=== PATIENT | male | born 1980 | race Caucasian/White ===

== ENCOUNTER 2024-11-04 11:35 | Emergency (ER) | payer MEDICAID, SELFPAY ==
[2024-11-04] VITALS (8 sets, daily range): BP systolic 101–125; BP diastolic 51–80; PULSE 57–81; RESP 16–18; TEMP 36.5–36.9; O2SAT 95–99; BMI 31.3
--- NOTE | ~2024-11-04 | CT_ITS ---
EXAMINATION: CTA NECK WITH CONTRAST (STROKE) CTA BRAIN WITH CONTRAST (STROKE) CLINICAL INFORMATION: Severe headache. Diplopia. COMPARISON: None available. TECHNIQUE: CTA of the head and neck was performed in the axial plane from the mediastinum to the skull vertex using 70 mL Omnipaque 350 intravenous contrast. Additional reformatted multiplanar images including maximum intensity projection MIP images are generated on the CT workstation. This CT examination was performed using dose optimization techniques as appropriate, variously including the following: *Automated exposure control *Adjustment of mA and/or kV according to patient size (this includes techniques or standardized protocols for targeted exams where dose is matched to indication/reason for exam; i.e. extremities or head) *Use of iterative reconstruction technique DLP: 1595 mGy centimeter. FINDINGS: The degree of stenosis determined by criteria similar to NASCET. Brain: No acute intracranial hemorrhage mass effect midline shift, hydrocephalus or herniation. Spears-white matter differentiation is normal. Posterior cranial fossa contents demonstrated no acute hemorrhage or mass effect. Craniocervical junction demonstrates normal position of the cerebellar tonsils. No gross masses in the sellar suprasellar region. Mucosal thickening and secretions in the right maxillary sinus and right abnormal air cells. Tympanic cavities and mastoid cells are aerated. Probable old traumatic deformities in the nasal bones. Chest CTA: No aneurysm or dissection, thoracic aortic arch. Neck CTA: Right CCA: Normal patency. No focal stenosis. No intimal flap. Right ICA: Normal patency. No focal stenosis. No intimal flap. Tortuosity. Left CCA: Normal patency. No focal stenosis. No intimal flap. Tortuosity. Left ICA: Normal patency. No focal stenosis. No intimal flap. Tortuosity. V1/V2 segments: Normal patency. No focal stenosis. No intimal flap. Tortuosity. Codominant vertebral arteries. Brain CTA: Anterior cerebral circulation: ICAs: Normal patency. No focal stenosis. No abrupt cut off. MCA's: Normal patency. No focal stenosis. No abrupt cut off. Bifurcation/trifurcation demonstrated no vascular irregularity. ACAs: Normal patency. No focal stenosis. No abrupt cut off. Anterior communicating artery is patent without vascular irregularity. Ophthalmic arteries are patent without vascular irregularity. I do not see the posterior communicating arteries. Posterior cerebral circulation: V3/V4 segments: Normal patency. No intimal flap. Posterior inferior cerebellar arteries are patent without vascular irregularity. Superior cerebellar arteries are patent without vascular irregularity. Basilar artery: Normal patency. No intimal flap. Basilar artery tip is normal. patternmaker bench: Normal patency. No focal stenosis. No abrupt cut off. Ancillary findings: Main cerebral venous sinuses are patent. Pulmonary mosaic pattern. Multilevel cervical spondylosis. Incomplete fusion posterior arch of C1. S-shaped curvature of the cervical thoracic spine which could be positional.. CT/CT angio head neck IMPRESSION: No main cerebral artery occlusion or embolus. No cerebral aneurysm. No high degree stenosis or dissection, extracranial arteries. No acute brain abnormality by CT. No thrombosis, main cerebral venous sinuses. 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 Multilevel cervical spondylosis. Probable small airway disease versus small pulmonary artery disease.. Electronically signed by: Keith Bergman MD 11/04/2024 03:03 PM EDT
--- NOTE | ~2024-11-04 | MR_ITS ---
CLINICAL HISTORY: ? CVA double vision MR Brain without gadolinium Comparison: None provided Findings: No restricted diffusion. No intra-axial mass or hemorrhage. No midline shift. No hydrocephalus. Vascular flow voids are intact. The orbits are normal. Mucosal thickening in the maxillary sinuses, ethmoid air cells, and left frontal sinus. No focal bone lesion. IMPRESSION: 1. No acute intracranial findings. This document has been electronically signed by: Raghavendra Jamil MD on 11/04/2024 19:05:00
--- NOTE | 2024-11-04 11:40 | ED_ITS ---
HPI - General Adult General Chief complaint: Headache Stated complaint: double vision 1week, light headed, headache Time Seen by Provider: 11/04/24 12:18 Source: patient Mode of arrival: ambulatory Limitations: no limitations History of Present Illness HPI narrative: this is a 43 years old presented to the emergency department with a chief complaint of headache and double vision for about 10 days. He has a history of polysubstance abuse the he is in a program right now he he is on methadone. Onset (ago): day(s) (10) Location: head Radiation: non-radiation Severity: moderate Pain Consistency: constant Relieving factors: none Exacerbating factors: none Associated symptoms: denies other symptoms Related Data Allergies Allergy/AdvReac Type Severity Reaction Status Date / Time fish derived (fish) Allergy Severe Anaphylaxis Verified 11/04/24 11:41 lactase (From Dairy Aid) Allergy Severe Anaphylaxis Verified 11/04/24 11:41 Sulfa (Sulfonamide Allergy Severe Anaphylaxis Verified 11/04/24 11:41 Antibiotics) Review of Systems 2 Constitutional: Constitutional: Reports no additional constitutional complaints Cardiovascular: Cardiovascular: Reports no additional cardiovascular complaints Neurologic: Reports system reviewed and no additional complaints, except as documented and Reports as per [facility] Past Medical History Attestation statement: The following information was validated with the patient. [facility] Narrative: Substance abuse opioids, pulmonary emboli Social History Social History Smoked in Last 30 Days: No Use of substances other than those prescribed or required for medical reasons: No Advance Directives: No Advance Directives Information Provided: Yes Do you have a plan to hurt others: No Plan Physical Exam ED Vital Signs: Vital Signs - 24 hr 11/04/24 11:40 11/04/24 12:50 11/04/24 14:06 Temperature 98.3 F 97.7 F Pulse Rate 81 65 57 Respiratory Rate 18 18 Blood Pressure 125/80 101/51 L 111/67 Pulse Oximetry 96 95 Oxygen Delivery Method Room Air Room Air 11/04/24 14:07 11/04/24 14:07 11/04/24 16:20 Temperature 98.4 F Pulse Rate 61 68 59 Respiratory Rate 16 Blood Pressure 103/67 102/71 112/70 Pulse Oximetry 98 Oxygen Delivery Method Room Air 11/04/24 18:00 Temperature 97.8 F Pulse Rate 65 Respiratory Rate 16 Blood Pressure 124/75 Pulse Oximetry 99 Oxygen Delivery Method Room Air BMI result Body Mass Index 31.3 no acute distress Const General: cooperative Nutritional Appearance: average body habitus Orientation/consciousness: oriented to person and patient oriented x3 Limitations: no limitations HENMT Ears: hearing grossly normal bilaterally General nose exam: Normal external nose present Face and sinus: Yes normal facial exam Mouth: Normal oral and palatal mucosa present Throat: Yes posterior oropharynx normal Eyes Other: full extraocular movement pupils equal and jacques General: appearance normal, both eyes and all related structures Visual Blackmon: normal visual blackmon by confrontation Eyelids: Yes eyelids normal Conjunctivae: conjunctivae normal Sclerae: sclerae normal Chest Chest palpation & inspection: normal inspection of the chest Resp Effort & Inspection: normal respiratory effort Auscultation: clear to auscultation bilaterally Cardio Jugular venous distension: no JVD Rate: regular rate GI Inspection: Yes normal to inspection Palpation (GI): Soft to palpation, not firm, nontender and no guarding General: Yes no CVA tenderness Back/Spine/Pelvis Back: no CVA tenderness Skin General skin exam: no rashes or lesions noted and elasticity normal Lesions: no lesions Rashes: no rashes Trauma: no lacerations or abrasions Neuro General: oriented to person and patient oriented x3 Cranial nerves: Yes CN's II-XII intact bilaterally Cognition (Neuro): normal cognition Motor exam (neuro): 5/5 motor strength present throughout Course Course Course Narrative: RME, this is a rapid medical exam performed by Ernesto Barron please refer to primary provider for complete H&P- 43 year old male presents for evaluation of blurry vision. Patient reports for the last week he has had blurry vision and a headache. History of substance abuse, denies fevers or chills. Plan for labs, CT scan of the brain Reevaluation(s) Reevaluation #1: Spoke with Ophatalmologist Dr Pérez will see pt Tomorrow at 7:40 AM Reevaluation #2: MRI normal no CVA at this point the patient can be discharged home Time: 19:20 Medications Administered Discontinued Medications Generic Name Dose Route Start Last Admin Trade Name Freq PRN Reason Stop Dose Admin Sodium Chloride 1,000 mls @ 999 mls/hr 11/04/24 14:30 11/04/24 16:07 Ns IVCONT 11/04/24 15:30 Infused .Q1H1M MONICA Infusion Iohexol 100 ml 11/04/24 14:22 11/04/24 14:22 Iohexol 350 Mg/Ml 100 Ml Infus..Btl IV 11/04/24 14:23 70 ml ONCE ONE Administration Ketorolac Tromethamine 15 mg 11/04/24 14:15 11/04/24 14:42 Ketorolac Tromethamine 15 Mg/Ml Vial IVPUSH 11/04/24 14:16 15 mg ONCE ONE Administration Lidocaine HCl 5 ml 11/04/24 12:29 11/04/24 12:49 Lidocaine Hcl 1 % Mpf 5 Ml Vial SUBCUT 11/04/24 12:30 5 ml ONCE ONE Administration Procedures EJ/Peripheral Line Arm L: Time Out Performed: Yes Skin Cleansed in Sterile Fashion: Yes Size (gauge): 20 IV Secured and Dressing Applied: Yes Patient Tolerated Procedure: well Additional Comments: this is a difficult IV access because the history of drug use in the past, under ultrasound-guided linear probe I cannulated the left basilic vein with a 20 gauge catheter long blood was obtain good flash line was secured Medical Decision Making Medical Decision Making MDM Narrative: patient is headache and diplopia times 10 days reasonable to get labs and imaging Differential Diagnosis Differential Diagnoses: The differential diagnosis associated with the presentation includes CVA/ brain aneurysm / migraines Admission/Observation Consideration of admission/observation: Escalation of care including admission/observation considered Consult Healthcare Provider Management of the patient was discussed with: Principal Statistical Scientist Dr Pérez Lab Data MDM Lab Attestation statement: I reviewed the patient's lab results. 11/04/24 12:36 11/04/24 12:55 Labs: Lab Results 11/04/24 11/04/24 11/04/24 Range/Units 12:36 12:55 14:18 WBC 5.9 (4.8-10.8) X10*3/uL RBC 4.81 (4.60-5.80) X10*6/uL Hgb 14.4 (14.0-18.0) g/dl Hct 41.3 L (42.0-52.0) % MCV 85.9 (80.0-98.0) fL MCH 29.9 (27.0-33.0) pg MCHC 34.9 (31.0-36.0) g/dl RDW 12.9 (11.0-16.0) % Plt Count TNP MPV TNP Immature Gran % (Auto) 0.2 (0.0-0.4) % Neut % (Auto) 53.7 (45-73) % Lymph % (Auto) 35.3 (20-40) % [place] % (Auto) 6.6 (2-11) % Eos % (Auto) 3.4 (0-4) % Baso % (Auto) 0.8 (0-2) % Lymph # (Auto) 2.1 (1.2-4.9) X10*3/uL [place] # (Auto) 0.4 (0.1-1.2) X10*3/uL Eos # (Auto) 0.2 (0.0-0.4) X10*3/uL Baso # (Auto) 0.1 (0.0-0.2) X10*3/uL Abs Immat Gran (auto) 0.01 (0.00-0.03) X10*3/uL Absolute Neuts (auto) 3.2 (2.0-8.3) x10*3/uL Absolute Nucleated RBC 0.000 (0.0-0.012) X10*3/uL Nucleated RBC % (auto) 0.0 (0.0-0.2) /100WBC Smear Tech's Comments VERIFIED Sodium 142 (135-145) mmol/L Potassium 3.4 (3.3-5.1) mmol/L Chloride 112 H (96-108) mmol/L Carbon Dioxide 23 (22-29) mmol/L Anion Gap 10 L (12-20) BUN 17 H (9-16) mg/dL Creatinine 0.81 (0.5-1.4) mg/dL Estim Creat Clear Calc 133.0 Estimated GFR > 60 Random Glucose 83 (60-115) mg/dL Calcium 7.4 L (8.4-10.2) mg/dL Magnesium 1.7 (1.6-2.6) mg/dL Total Bilirubin 0.4 (0.0-1.0) mg/dL AST 24 (5-37) U/L ALT 16 (0-40) U/L Alkaline Phosphatase 44 (39-117) U/L Total Protein 5.9 L (6.5-8.0) g/dL Albumin 3.8 (3.5-5.0) g/dL Urine Color Yellow Urine Appearance Clear Urine pH 5.5 (5.0-9.0) Ur Specific [place] 1.010 (1.005-1.025) Urine Protein Negative (Neg-Trace) mg/dL Urine Glucose (UA) Negative (Negative) mg/dL Urine Ketones Negative (Negative) mg/dL Urine Blood Negative (Negative) Urine Nitrite Negative (Negative) Ur Leukocyte Esterase Negative (Negative) Urine RBC 0-2 (0-2) /HPF Urine WBC 0-5 (0-5) /HPF Ur Squamous Epith Cells 0-2 (0-2) /HPF Urine Bacteria None Seen (None Seen) Hyaline Casts 0-2 (0-2) /LPF Urine Opiates Screen Not Detected (Not Detect) Ur Buprenorphine Scrn Not Detected (Not Detect) ng/mL Ur Oxycodone Screen Not Detected (Not Detect) ng/mL Urine Methadone Screen Positive H (Not Detect) ng/mL Urine Fentanyl Screen Not Detected (Not Detect) Ur Barbiturates Screen Not Detected (Not Detect) Ur Phencyclidine Scrn Not Detected (Not Detect) Ur Amphetamines Screen Not Detected (Not Detect) U Benzodiazepines Scrn Not Detected (Not Detect) Urine Cocaine Screen Not Detected (Not Detect) U Marijuana (THC) Screen Not Detected (Not Detect) Radiology Impression Discussion of test interpretation with radiology: I have reviewed the radiologist's reading. Radiologist Impression: No restricted diffusion. No intra-axial mass or hemorrhage. No midline shift. No hydrocephalus. Vascular flow voids are intact. The orbits are normal. Mucosal thickening in the maxillary sinuses, ethmoid air cells, and left frontal sinus. No focal bone lesion. IMPRESSION: 1. No acute intracranial findings. This document has been electronically signed by: Raghavendra Jamil MD on 11/04/2024 19:05:00 Dictated By: Raghavendra Jamil MD Discharge Plan Discharge Clinical Impression: Diplopia Headache Qualifiers: Headache type: unspecified Headache chronicity pattern: unspecified pattern I ntractability: not intractable Qualified Code(s): R51.9 - Headache, unspecified Patient Disposition: Home, Self-Care Instructions: Diplopia (ED) Additional Instructions: we want you to see an eye doctor (print press operator ) we spoke with Dr. Hedrick we will give you the number call and make an appointment he was willing to see a [phone] tomorrow. We can tell you 100 % that you brain is okay, no stroke no brain aneurysm. Referrals: Breezy Hedrick [Physician, Ophthalmology] - 11/05/24 Print Language: Icelandic
--- NOTE | 2024-11-04 12:36 | PC.NURSE ---
43 M presents to ED with headache in central forehead and double vision x 2 weeks. Pt is A+Ox4, anxious but cooperative. RR even and unlabored, denies SOB or chest pain. No other complaints. Pt sts hx substance use but denies recent use.
[2024-11-04] MEDS: Lidocaine HCl 1 % MPF 5 ML VIAL SUBCUT (12:49)
[2024-11-04 12:51] LABS: Hematocrit 41.3 % (42.0-52.0); Hemoglobin 14.4 g/dl (14.0-18.0); Imm Gran Abs Auto 0.01 X10*3/uL (0.00-0.03); Imm Gran Pct Auto 0.2 % (0.0-0.4); Lymphocytes Absolute Auto 2.1 X10*3/uL (1.2-4.9); MANUAL DIFF FLAG SCAN; Mean Corpuscular HGB Conc 34.9 g/dl (31.0-36.0); Mean Corpuscular Hemoglobin 29.9 pg (27.0-33.0); Mean Corpuscular Volume 85.9 fL (80.0-98.0); NRBC Abs Auto 0.000 X10*3/uL (0.0-0.012); NRBC Pct Auto 0.0 /100WBC (0.0-0.2); PLT CLUMP 1; Red Blood Count 4.81 X10*6/uL (4.60-5.80); SCAN SMEAR FLAG 1
[2024-11-04 13:13] LABS: Alanine Aminotransferase 16 U/L (0-40); Albumin Level 3.8 g/dL (3.5-5.0); Alkaline Phosphatase 44 U/L (39-117); Anion Gap 10 (12-20); Aspartate Amino Transferase 24 U/L (5-37); Blood Urea Nitrogen 17 mg/dL (9-16); Calcium 7.4 mg/dL (8.4-10.2); Carbon Dioxide 23 mmol/L (22-29); Chloride 112 mmol/L (96-108); Creatinine Clr Calc Pharmacy 133.0; Estimated Glomerular Filt Rate > 60; Magnesium 1.7 mg/dL (1.6-2.6); Potassium 3.4 mmol/L (3.3-5.1); Sodium 142 mmol/L (135-145); Total Protein 5.9 g/dL (6.5-8.0)
[2024-11-04 13:25] LABS: White Blood Count 5.9 X10*3/uL (4.8-10.8)
[2024-11-04] MEDS: iohexoL 350 MG/ML 100 ML INFUS..BTL IV (14:22)
[2024-11-04 14:25] LABS: Appearance Urine Clear; Glucose Urine UA Negative (Negative); PH 5.5 (5.0-9.0); Specific Gravity - Urine 1.010 (1.005-1.025)
[2024-11-04 14:56] LABS: Cannabinoid Screen Urine Not Detected (Not Detect)
--- NOTE | 2024-11-04 15:45 | PC.NURSE ---
MRI form faxed and placed in chart
--- NOTE | 2024-11-04 16:06 | PC.NURSE ---
Recieved a phone call from [facility], requesting discharge paperwork to be faxed to them at [phone]. Pt gave ok to fax over paperwork. [facility] staff also stated they can come pick him up when he is discharge, phone number is [phone].
--- NOTE | 2024-11-04 21:31 | PC.NURSE ---
this expert medical writer assumed care of pt at 1900.
--- NOTE | 2024-11-04 22:41 | PC.NURSE ---
this teletypewriter installer attempted to call [facility] program multiple time w/ no success, attempted made to get care team involved, pt given portable phone and able to get hold of [facility] program staff Olga, staff member able to contact other [facility] staff in order to come and pickling grader pt
== END 2024-11-04 21:55 | disposition home or self-care (01) ==
PROVIDERS: Physician Assistant; Emergency Provider Emergency Medicine
DX: H53.2 Diplopia (principal); R51.9 Headache, unspecified; F11.20 Opioid dependence, uncomplicated
CPT/HCPCS: 36415; 36573; 70496; 70498; 70551; 80053; 80307; 81001; 83735; 85025; 96361; 96374; 99285; J1885; J2003; Q9967

== ENCOUNTER → 2024-11-04 12:18 | Outpatient (BNV) | payer MEDICAID, SELFPAY | PROVIDERS: Emergency Provider Emergency Medicine; Visit Provider Radiology Diagnostic Radiology | DX: R51.9 Headache, unspecified (principal); M47.812 Spondylosis without myelopathy or radiculopathy, cervical region; J32.9 Chronic sinusitis, unspecified | CPT/HCPCS: 70496; 70498; 70551 ==